=== PATIENT | female | born 1990 | race Caucasian/White ===

== ENCOUNTER 2019-01-11 20:11 | Emergency (ER) | payer OTHER ==
[~2019-01-11] VITALS: Ht 160 cm; Wt 81.8 kg
[~2019-01-11 20:11] MED LIST: NOCURR
[2019-01-11 21:45] VITALS: BP 119/79
== END 2019-01-11 22:30 | disposition home or self-care (01) ==
LOC: EMS 20:12
DX: S63.502A Unspecified sprain of left wrist, initial encounter (principal); Z90.49 Acquired absence of other specified parts of digestive tract; X50.0XXA Overexertion from strenuous movement or load, initial encounter; Y93.89 Activity, other specified; Y92.89 Other specified places as the place of occurrence of the external cause; Y99.8 Other external cause status